=== PATIENT | male | born 1985 | race Caucasian/White ===

== ENCOUNTER 2021-05-29 01:32 | Emergency (ER) | payer OTHER ==
[2021-05-29 01:36] VITALS: BP 180/108; PULSE 88; RESP 20; TEMP 98.4
[2021-05-29] MEDS ORDERED: MORPHINE SULFATE 4 MG/ML SYRINGE IM STA (01:43)
--- NOTE | 2021-05-29 02:13 | ED ---
Upper Extremity HPI - General Chief Complaint: Extremity Injury, Upper Stated Complaint: Right shoulder pain Time Seen by Provider: 05/29/21 01:37 Source: patient, RN notes reviewed Mode of arrival: ambulatory Limitations: no limitations - History of Present Illness Initial Comments: 35-year-old male presents to the emergency department complaining of right upper extremity pain. He notes he was using some tools and wrenching at work when he felt some pain. He notes that he thought was just a strain so he went home took some Tylenol Motrin with some lidocaine patches up. He notes that today the pain is significantly worse. He notes that he's been putting lidocaine patches on it and icing it with minimal relief. Patient notes that he tried having his significant other massage his neck to see if anything would give nose also no relief. Patient came to the emergency room to get evaluated. He noted that his pain is approximately a 8-9 out of 10. He notes that he does have good range of motion just hurts to move. He denied chest pain shortness of breath headache nausea vomiting diarrhea constipation fever fatigue chills. - Related Data Previous Rx's Medication Instructions Recorded Acetaminophen-Codeine 300-30mg 1 each PO Q4H PRN #20 tablet 09/29/14 [Tylenol w/codeine #3] Albuterol Inhaler (Mhu) [Ventolin 2 puff INHALATION Q4HR PRN #1 09/29/14 Hfa Inhaler (Mhu)] inhaler Naproxen [Naprosyn] 500 mg PO Q12HR #24 tab 09/29/14 Allergies Allergy/AdvReac Type Severity Reaction Status Date / Time No Known Allergies Allergy Verified 05/29/21 01:36 Review of Systems ROS Statement: Those systems with pertinent positive or pertinent negative responses have been documented in the HPI. ROS Other: All systems not noted in ROS Statement are negative. Past Medical History Past Medical History: No Reported History History of Any Multi-Drug Resistant Organisms: None Reported Past Surgical History: No Surgical Hx Reported Past Psychological History: No Psychological Hx Reported Smoking Status: Current every day smoker Past Alcohol Use History: None Reported Past Drug Use History: Marijuana General Exam Limitations: no limitations General appearance: alert, in no apparent distress Head exam: Present: atraumatic, normocephalic, normal inspection Eye exam: Present: normal appearance, PERRL, EOMI. Absent: scleral icterus, conjunctival injection, periorbital swelling ENT exam: Present: normal exam, mucous membranes moist Neck exam: Present: normal inspection Respiratory exam: Present: normal lung sounds bilaterally. Absent: respiratory distress, wheezes, rales, rhonchi, stridor Cardiovascular Exam: Present: regular rate, normal rhythm, normal heart sounds. Absent: systolic murmur, diastolic murmur, rubs, gallop, clicks GI/Abdominal exam: Present: soft, normal bowel sounds. Absent: distended, tenderness, guarding, rebound, rigid Extremities exam: Present: normal inspection, full ROM, normal capillary refill. Absent: tenderness, pedal edema, joint swelling, calf tenderness Right Shoulder Exam: Present: normal inspection, other (Condition did have lidocaine patches covering his entire right arm area). Absent: full ROM (Secondary to pain), tenderness, swelling, abrasion, laceration, ecchymosis, deformity, crepitus, dislocation Upper Arm exam: Present: normal inspection. Absent: full ROM, tenderness Elbow exam: Present: normal inspection. Absent: full ROM, tenderness, swelling, abrasion, laceration, ecchymosis, deformity, crepitus, dislocation Neurological exam: Present: alert, oriented X3 Psychiatric exam: Present: normal affect, normal mood Skin exam: Present: warm, dry, intact, normal color. Absent: rash Course Vital Signs 05/29/21 01:33 Temperature 98.4 F Pulse Rate 88 Respiratory 20 Rate Blood Pressure 180/108 O2 Sat by Pulse 99 Oximetry Medical Decision Making - Medical Decision Making 35-year-old male complaining of right upper extremity pain after injuring at work. X-ray the right shoulder, x-ray right elbow, 4 mg of morphine ordered. On physical exam patient did have slightly reduced strength in flow trader strength in the right upper extremity secondary to pain as patient noted that it did cause significant discomfort. Patient is agreeable to discharge home with follow-up to orthopedics if imaging is negative. Extremities negative for any acute processes. Case discussed with Dr. Ramirez, patient discharge home. Disposition Clinical Impression: Right forearm injury Disposition: HOME SELF-CARE Condition: Stable Instructions (If sedation given, give patient instructions): Elbow Sprain (ED) Additional Instructions: Please return to the Emergency Department if symptoms worsen or any other concerns. Follow-up with primary care 1-2 days. Take Tylenol 3 as prescribed. Follow-up with orthopedics as soon as possible. Use sling throughout day. Is patient prescribed a controlled substance at d/c from ED?: No Referrals: Santhosh Barreto MD [Primary Care Provider] - 1-2 days Bridger Alcantara MD [STAFF PHYSICIAN] - 1-2 days Time of Disposition: 03:17
[2021-05-29] MEDS ORDERED: ACET/COD 300 MG/30 MG STARTER PACK 6 TAB BTL PO STA (03:15)
--- NOTE | 2021-05-29 03:26 | XR ---
EXAMINATION TYPE: XR shoulder complete RT DATE OF EXAM: 05/29/2021 COMPARISON: NONE HISTORY: Shoulder pain TECHNIQUE: 3 views FINDINGS: There is no fracture nor dislocation. Joint spaces are normal. There are no pathologic calc ifications. IMPRESSION: Negative right shoulder exam.
--- NOTE | 2021-05-29 03:27 | XR ---
EXAMINATION TYPE: XR elbow complete RT DATE OF EXAM: 05/29/2021 COMPARISON: NONE HISTORY: Elbow pain TECHNIQUE: 3 views FINDINGS: There is no evidence of fracture nor dislocation. Joint spaces are normal. There is no sign of elbow joint effusion. IMPRESSION: Negative right elbow exam.
== END 2021-05-29 03:38 | disposition home or self-care (01) ==
LOC: EC 01:32
DX: S59.911A Unspecified injury of right forearm, initial encounter (principal); F17.200 Nicotine dependence, unspecified, uncomplicated; X58.XXXA Exposure to other specified factors, initial encounter; Y93.89 Activity, other specified; Y99.0 Civilian activity done for income or pay
CPT/HCPCS: 73030; 73080; 99283; 96372; J2270

== ENCOUNTER → 2023-08-12 | Outpatient (CLI) | payer OTHER ==
[2023-08-12 16:02] LABS: Basophils # (A) 0.04 X 10*3/uL (0.00-0.10); Basophils % (A) 0.4 %; Eosinophils # (A) 0.14 X 10*3/uL (0.04-0.35); Eosinophils % (A) 1.4 %; HCT 45.4 % (39.6-50.0); Lymphocytes # (A) 3.26 X 10*3/uL (0.90-5.00); Lymphocytes % (A) 31.6 %; MCH 29.8 pg (27.0-32.0); MCV 90.1 FL (80.0-97.0); Mean Platelet Volume 10.9 FL (9.5-12.2); Monocytes # (A) 0.58 X 10*3/uL (0.20-1.00); Monocytes % (A) 5.6 %; NRBC Per 100 WBC 0 X 10*3/uL (0.00-0.01); Neutrophils # (A) 6.25 X 10*3/uL (1.80-7.70); Neutrophils % (A) 60.5 %; Platelet Count 226 X 10*3/uL (140-440); RBC 5.04 X 10*6/uL (4.40-5.60); RDW 13.8 % (11.5-14.5); WBC 10.32 X 10*3/uL (4.50-10.00)
[2023-08-12 16:29] LABS: BUN/Creat Ratio 14.88 Ratio (12.00-20.00); Blood Urea Nitrogen 11.9 mg/dL (9.0-27.0); Carbon Dioxide 29.6 mmol/L (21.6-31.8); Chloride 101 mmol/L (96-109); Chol/HDL Ratio 3.26 Ratio; Glucose 81 mg/dL (70-110); LDL Cholesterol,Calculated 67.7 mg/dL (0.0-131.0); Magnesium 1.7 mg/dL (1.5-2.4); Potassium 4.5 mmol/L (3.5-5.5); Sodium 141 mmol/L (135-145)
[2023-08-12 16:30] LABS: ALT 31 U/L (10-49); AST 20 U/L (14-35); Albumin 4.7 g/dL (3.8-4.9); Albumin/Globulin Ratio 2.04 Ratio (1.60-3.17); Alkaline Phosphatase 73 U/L (41-126); Calcium 9.5 mg/dL (8.7-10.3); Globulin 2.3 g/dL (1.6-3.3); Prostate Specific Antigen 0.57 ng/mL (0.000-2.500); T4, Free (Free Thyroxine) 0.98 ng/dL (0.80-1.80); Total Bilirubin 0.4 mg/dL (0.3-1.2)
== END | disposition home or self-care (01) ==
LOC: LABWHC1 10:29
PROVIDERS: ATTEND Internal Medicine
DX: Z00.01 Encounter for general adult medical examination with abnormal findings (principal); N40.1 Benign prostatic hyperplasia with lower urinary tract symptoms; Z79.899 Other long term (current) drug therapy
CPT/HCPCS: 36415; 80053; 80061; 82306; 82607; 83735; 84153; 84439; 84443; 85025